=== PATIENT | female | born 1990 | race Caucasian/White ===

== ENCOUNTER 2020-04-30 08:41 | Outpatient (CLI) | payer OTHER ==
[~2020-04-30] VITALS: Ht 170.2 cm; Wt 78.2 kg
[~2020-04-30 08:41] MED LIST: IBUP-1222 PO; OXYC1TAB14 PO
[2020-04-30] MEDS ORDERED: TERBUTALINE 1 MG/ML, 1ML ONE (09:12)
[2020-04-30] MEDS ORDERED: TERBUTALINE 1 MG/ML, 1ML SQ STA (09:23)
[2020-04-30 09:34] VITALS: BP 114/56
[2020-04-30 09:46] LABS: MICROSCOPIC INDICATED
[2020-04-30] MEDS ORDERED: TERBUTALINE 1 MG/ML, 1ML IV STA (10:56)
[2020-04-30 12:18] LABS: BASOPHILS % (AUTO) 0 % (0-1); EOSINOPHILS % (AUTO) 0 % (1-7); LYMPHOCYTES % (AUTO) 18 % (22-44); MEAN CORPUSCULAR HEMOGLOBIN 31.6 pg (27.0-34.8); MEAN CORPUSCULAR HGB CONC 34.2 g/dL (32.4-35.8); MEAN PLATELET VOLUME 8.8 fL (7.4-10.4); MONOCYTES % (AUTO) 5 % (2-9); NEUTROPHILS % (AUTO) 77 % (42-75); PLATELET COUNT 175 x10^3/uL (130-400); RED BLOOD COUNT 3.82 x10^6/uL (3.82-5.3); RED CELL DISTRIBUTION WIDTH 12.9 % (9.6-15.2)
[2020-04-30 12:22] LABS: MD NO
== END 2020-04-30 11:45 | disposition home or self-care (01) ==
LOC: LDOP 08:41
PROVIDERS: ATTEND Obstetrics & Gynecology
DX: O26.892 Other specified pregnancy related conditions, second trimester (principal); R10.9 Unspecified abdominal pain; Z3A.24 24 weeks gestation of pregnancy
CPT/HCPCS: 81001; 85025; 86762; 87086; 87340; 87806; 96372; 99211; J3105; G0463; G0475

== ENCOUNTER 2020-05-27 11:56 | Outpatient (CLI) | payer OTHER ==
[2020-05-27] MEDS ORDERED: TERBUTALINE 1 MG/ML, 1ML ONE (12:18)
[2020-05-27] MEDS ORDERED: LACTATED RINGERS 1,000 ML IVBOLUS ONE (14:00)
[2020-05-27] MEDS ORDERED: TERBUTALINE 1 MG/ML, 1ML SQ ONE (14:00)
[2020-05-27] MEDS ORDERED: LACTATED RINGERS 1,000 ML IV SCH (14:30)
== END 2020-05-27 17:33 | disposition home or self-care (01) ==
LOC: LDOP 11:56
PROVIDERS: ATTEND Obstetrics & Gynecology
DX: O26.892 Other specified pregnancy related conditions, second trimester (principal); R10.9 Unspecified abdominal pain; Z3A.27 27 weeks gestation of pregnancy
CPT/HCPCS: 59025; 96360; 96361; 96372; J3105; J7120

== ENCOUNTER 2020-06-14 16:06 | Observation (INO) | payer OTHER ==
[~2020-06-14] VITALS: Ht 170.2 cm; Wt 79.1 kg
[2020-06-14 17:01] LABS: MICROSCOPIC INDICATED
[2020-06-14] MEDS: LACTATED RINGERS 1,000 ML IV SCH ×2 (17:15→18:17)
[2020-06-14 17:20] VITALS: BP 127/74
[2020-06-14] MEDS ORDERED: INDOMETHACIN 50 MG CAPSULE ONE (20:19)
[2020-06-14] MEDS ORDERED: BETAMETHASONE 6 MG/ML, 5ML IM ONE ×2 (20:19→20:30)
[2020-06-14] MEDS ORDERED: INDOMETHACIN 50 MG CAPSULE PO ONE (20:30)
[2020-06-14] MEDS ORDERED: SUCRALFATE 1 GM/10 ML UDC PO ONE (20:30)
== END 2020-06-14 22:15 | disposition home or self-care (01) ==
LOC: LDOP 16:06 → LDIP 18:36
PROVIDERS: ADMIT Obstetrics & Gynecology; ATTEND Obstetrics & Gynecology
DX: O62.9 Abnormality of forces of labor, unspecified (principal); Z3A.31 31 weeks gestation of pregnancy; Z87.51 Personal history of pre-term labor; Z79.899 Other long term (current) drug therapy
CPT/HCPCS: 59025; 81001; 87086; 96360; 96361; 96372; G0378; J0702; J7120

== ENCOUNTER 2020-06-15 20:02 | Outpatient (CLI) | payer OTHER ==
[2020-06-15] MEDS ORDERED: BETAMETHASONE 6 MG/ML, 5ML IM ONE (20:30)
[2020-06-15] MEDS ORDERED: PLEASE ENTER HEIGHT AND WEIGHT MC SCH (20:30)
== END 2020-06-15 20:20 | disposition home or self-care (01) ==
LOC: LDOP 20:02
PROVIDERS: ATTEND Obstetrics & Gynecology
DX: O62.9 Abnormality of forces of labor, unspecified (principal); O26.893 Other specified pregnancy related conditions, third trimester; R10.9 Unspecified abdominal pain; Z3A.31 31 weeks gestation of pregnancy; Z79.899 Other long term (current) drug therapy
CPT/HCPCS: 59025; 96372; J0702

== ENCOUNTER 2020-07-03 10:17 | Inpatient (IN) | payer OTHER ==
[~2020-07-03] VITALS: Ht 170.2 cm; Wt 83.3 kg
[2020-07-03] MEDS ORDERED: MAGNESIUM SULF. PMX 20GM/500ML 500 ML IV SCH (10:30)
[2020-07-03] MEDS ORDERED: MAGNESIUM SULFATE PMX 4GM/100M 100 ML IVPB ONE (10:30)
[2020-07-03] MEDS ORDERED: MAGNESIUM SULFATE PMX 2GM/50ML 50 ML IVPB ONE (10:30)
[2020-07-03] MEDS ORDERED: PLEASE ENTER HEIGHT AND WEIGHT MC SCH (11:00)
[2020-07-03] MEDS: AMPICILLIN 2 GM in SODIUM CHLORIDE 0.9% 100 ML IV SCH ×3 (11:00→23:01)
[2020-07-03] MEDS ORDERED: FENTANYL PF 100 MCG/2ML IV PRN (11:00)
[2020-07-03] MEDS ORDERED: OXYTOCIN 30U/ 0.9% NaCL 500ML 500 ML IV ONE ×2 (11:00→12:00)
[2020-07-03] MEDS ORDERED: ONDANSETRON 2MG/ML, 2ML IVPush PRN (11:00)
[2020-07-03] MEDS ORDERED: TERBUTALINE 1 MG/ML, 1ML IVPush PRN (11:00)
[2020-07-03] MEDS ORDERED: FENTANYL PF 100 MCG/2ML IVPush PRN (11:00)
[2020-07-03] MEDS ORDERED: TERBUTALINE 1 MG/ML, 1ML SQ PRN (11:00)
[2020-07-03] MEDS ORDERED: BETAMETHASONE 6 MG/ML, 5ML IM ONE ×2 (11:20→12:00)
[2020-07-03 11:38] LABS: BASOPHILS % (AUTO) 0 % (0-1); EOSINOPHILS % (AUTO) 0 % (1-7); LYMPHOCYTES % (AUTO) 16 % (22-44); MEAN CORPUSCULAR HEMOGLOBIN 32.8 pg (27.0-34.8); MEAN CORPUSCULAR HGB CONC 35.3 g/dL (32.4-35.8); MONOCYTES % (AUTO) 7 % (2-9); NEUTROPHILS % (AUTO) 77 % (42-75); PLATELET COUNT 177 x10^3/uL (130-400); RED BLOOD COUNT 3.72 x10^6/uL (3.82-5.3); RED CELL DISTRIBUTION WIDTH 12.5 % (9.6-15.2)
[2020-07-03] MEDS: LACTATED RINGERS 1,000 ML IV SCH ×2 (12:00→21:20)
[2020-07-03] MEDS ORDERED: NEWBORN KIT ONE (12:04)
[2020-07-03] MEDS ORDERED: OXYTOCIN 30U/ 0.9% NaCL 500ML 500 ML ONE (19:28)
[2020-07-03] MEDS ORDERED: MISOPROSTOL 200 MCG TABLET ONE (19:29)
[2020-07-03] MEDS ORDERED: LIDOCAINE 1%, 20ML ONE (19:29)
[2020-07-03 20:18] VITALS: BP 119/61
[2020-07-03 23:54] LABS: MICROSCOPIC INDICATED
[2020-07-04] MEDS: AMPICILLIN 2 GM in SODIUM CHLORIDE 0.9% 100 ML IV SCH ×4 (04:57→22:52)
[2020-07-04 07:23] VITALS: BP 95/52
[2020-07-04] MEDS: LACTATED RINGERS 1,000 ML IV SCH ×2 (11:00→19:00)
[2020-07-04] MEDS ORDERED: BETAMETHASONE 6 MG/ML, 5ML IM ONE (11:05)
[2020-07-05] MEDS: LACTATED RINGERS 1,000 ML IV SCH ×3 (03:00→19:00)
[2020-07-05] MEDS: AMPICILLIN 2 GM in SODIUM CHLORIDE 0.9% 100 ML IV SCH ×2 (05:35→11:34)
[2020-07-05] MEDS ORDERED: DOCUSATE 100 MG CAPSULE ONE (09:18)
[2020-07-05] MEDS: DOCUSATE 100 MG CAPSULE PO SCH (09:25)
[2020-07-05 20:16] VITALS: BP 130/67
[2020-07-06] MEDS: LACTATED RINGERS 1,000 ML IV SCH ×3 (03:00→19:00)
[2020-07-06] MEDS: DOCUSATE 100 MG CAPSULE PO SCH ×3 (09:15→21:00)
[2020-07-06 12:30] LABS: BASOPHILS % (AUTO) 0 % (0-1); EOSINOPHILS % (AUTO) 0 % (1-7); LYMPHOCYTES % (AUTO) 19 % (22-44); MEAN CORPUSCULAR HEMOGLOBIN 33.1 pg (27.0-34.8); MEAN CORPUSCULAR HGB CONC 35.2 g/dL (32.4-35.8); MEAN PLATELET VOLUME 8.7 fL (7.4-10.4); MONOCYTES % (AUTO) 9 % (2-9); NEUTROPHILS % (AUTO) 72 % (42-75); PLATELET COUNT 186 x10^3/uL (130-400); RED BLOOD COUNT 3.27 x10^6/uL (3.82-5.3); RED CELL DISTRIBUTION WIDTH 12.7 % (9.6-15.2)
[2020-07-07] MEDS: LACTATED RINGERS 1,000 ML IV SCH (03:00)
[2020-07-07 07:26] VITALS: BP 104/55
[2020-07-07] MEDS: SODIUM CHLORIDE FLUSH 3ML SYRINGE IVF SCH ×2 (08:35→19:34)
[2020-07-07] MEDS: DOCUSATE 100 MG CAPSULE PO SCH (19:34)
[2020-07-08] MEDS: SODIUM CHLORIDE FLUSH 3ML SYRINGE IVF SCH ×2 (07:33→19:30)
[2020-07-08] MEDS: LACTATED RINGERS 1,000 ML IV SCH (08:04)
[2020-07-08 09:19] LABS: MICROSCOPIC NOT IND
[2020-07-08] MEDS: DOCUSATE 100 MG CAPSULE PO SCH ×3 (12:14→21:00)
[2020-07-08 19:30] VITALS: BP 113/56
[2020-07-09] MEDS: SODIUM CHLORIDE FLUSH 3ML SYRINGE IVF SCH (09:00)
[2020-07-10] MEDS: SODIUM CHLORIDE FLUSH 3ML SYRINGE IVF SCH (08:40)
[2020-07-10] MEDS: DOCUSATE 100 MG CAPSULE PO SCH (21:00)
[2020-07-11 08:55] VITALS: BP 115/55
[2020-07-11] MEDS: DOCUSATE 100 MG CAPSULE PO SCH ×2 (09:00→21:00)
[2020-07-11] MEDS: PRENATAL VIT/IRON/FA 1 EACH TABLET PO SCH (09:00)
[2020-07-11 19:48] VITALS: BP 112/59
[2020-07-12] VITALS: BP 89/46
[2020-07-12] MEDS: DOCUSATE 100 MG CAPSULE PO SCH ×3 (09:00→21:00)
[2020-07-12] MEDS: PRENATAL VIT/IRON/FA 1 EACH TABLET PO SCH (09:06)
[2020-07-13] MEDS: DOCUSATE 100 MG CAPSULE PO SCH ×3 (09:00→21:00)
[2020-07-13 09:05] VITALS: BP 108/59
[2020-07-13] MEDS: PRENATAL VIT/IRON/FA 1 EACH TABLET PO SCH (09:10)
[2020-07-13] MEDS ORDERED: PREN1TAB60 PO (09:28)
[2020-07-14 08:17] VITALS: BP 111/55
[2020-07-14] MEDS: DOCUSATE 100 MG CAPSULE PO SCH ×3 (09:00→21:00)
[2020-07-14] MEDS: PRENATAL VIT/IRON/FA 1 EACH TABLET PO SCH (12:00)
[2020-07-14] MEDS: LACTATED RINGERS 1,000 ML IV SCH ×2 (13:25→22:00)
[2020-07-14] MEDS ORDERED: ONDANSETRON 2MG/ML, 2ML IVPush PRN (14:00)
[2020-07-14] MEDS ORDERED: TERBUTALINE 1 MG/ML, 1ML IVPush PRN (14:00)
[2020-07-14] MEDS: D5%-LACTATED RINGERS 1,000 ML IV SCH ×2 (14:00→22:00)
[2020-07-14] MEDS ORDERED: FENTANYL PF 100 MCG/2ML IVPush PRN (14:00)
[2020-07-14] MEDS ORDERED: FENTANYL PF 100 MCG/2ML IV PRN (14:00)
[2020-07-14] MEDS ORDERED: OXYTOCIN 30U/ 0.9% NaCL 500ML 500 ML IV PRN (14:00)
[2020-07-14] MEDS ORDERED: CALCIUM CARBONATE 500 MG TAB.CHEW PO PRN (14:00)
[2020-07-14] MEDS ORDERED: TERBUTALINE 1 MG/ML, 1ML SQ PRN (14:00)
[2020-07-14] MEDS ORDERED: OXYTOCIN 30U/ 0.9% NaCL 500ML 500 ML IV ONE (14:00)
[2020-07-14 14:26] LABS: BASOPHILS % (AUTO) 0 % (0-1); EOSINOPHILS % (AUTO) 0 % (1-7); LYMPHOCYTES % (AUTO) 17 % (22-44); MEAN CORPUSCULAR HGB CONC 36.2 g/dL (32.4-35.8); MEAN PLATELET VOLUME 9.1 fL (7.4-10.4); MONOCYTES % (AUTO) 7 % (2-9); NEUTROPHILS % (AUTO) 76 % (42-75); PLATELET COUNT 245 x10^3/uL (130-400); RED BLOOD COUNT 3.94 x10^6/uL (3.82-5.3); RED CELL DISTRIBUTION WIDTH 12.8 % (9.6-15.2)
[2020-07-14] MEDS ORDERED: LIDOCAINE 1%, 20ML ONE (16:34)
[2020-07-14] MEDS ORDERED: METHYLERGONOVINE 0.2 MG/ML IM ONE (16:34)
[2020-07-14] MEDS ORDERED: MISOPROSTOL 200 MCG TABLET ONE (16:35)
[2020-07-14] MEDS ORDERED: BUPIVACAINE 0.25% ONE (18:46)
[2020-07-14] MEDS ORDERED: FENTANYL/BUPIV./NS/PF 250 ML EPIDCONT ONE (18:46)
[2020-07-14] MEDS ORDERED: METHYLERGONOVINE 0.2 MG/ML IM PRN (23:30)
[2020-07-14] MEDS ORDERED: MAGNESIUM HYDROXIDE 8%, 30ML UDC PO PRN (23:30)
[2020-07-14] MEDS ORDERED: SIMETHICONE 80 MG CHEW TAB PO PRN (23:30)
[2020-07-14] MEDS ORDERED: OXYcodone IR 5MG TABLET PO PRN (23:30)
[2020-07-14] MEDS ORDERED: OXYcodone/APAP 5/325MG TABLET PO PRN (23:30)
[2020-07-14] MEDS ORDERED: ONDANSETRON 2MG/ML, 2ML IV PRN (23:30)
[2020-07-14] MEDS ORDERED: ACETAMINOPHEN 325 MG TABLET PO PRN ×2 (23:30)
[2020-07-14] MEDS ORDERED: OXYTOCIN 10 UNITS/ML, 1ML IM PRN (23:30)
[2020-07-14] MEDS: OXYTOCIN 30U/ 0.9% NaCL 500ML 500 ML IV SCH (23:30)
[2020-07-14] MEDS: IBUPROFEN 800 MG TABLET PO PRN (23:45)
[2020-07-15 01:50] VITALS: BP 102/61
[2020-07-15 05:45] VITALS: BP 92/58
[2020-07-15 06:49] LABS: BASOPHILS % (AUTO) 0 % (0-1); EOSINOPHILS % (AUTO) 0 % (1-7); LYMPHOCYTES % (AUTO) 18 % (22-44); MEAN CORPUSCULAR HEMOGLOBIN 32.9 pg (27.0-34.8); MEAN CORPUSCULAR HGB CONC 35.7 g/dL (32.4-35.8); MEAN PLATELET VOLUME 8.9 fL (7.4-10.4); MONOCYTES % (AUTO) 12 % (2-9); NEUTROPHILS % (AUTO) 70 % (42-75); PLATELET COUNT 169 x10^3/uL (130-400); RED BLOOD COUNT 3.06 x10^6/uL (3.82-5.3); RED CELL DISTRIBUTION WIDTH 12.5 % (9.6-15.2)
[2020-07-15 07:35] VITALS: BP 98/60
[2020-07-15] MEDS: OXYTOCIN 30U/ 0.9% NaCL 500ML 500 ML IV SCH ×2 (09:30→19:30)
[2020-07-15] MEDS: PRENATAL VIT/IRON/FA 1 EACH TABLET PO SCH (09:52)
[2020-07-15] MEDS: DOCUSATE 100 MG CAPSULE PO PRN (09:52)
[2020-07-15] MEDS: IBUPROFEN 800 MG TABLET PO PRN (09:52)
[2020-07-15 16:00] VITALS: BP 101/65
[2020-07-15 20:36] VITALS: BP 109/73
[2020-07-16] MEDS: OXYTOCIN 30U/ 0.9% NaCL 500ML 500 ML IV SCH (05:30)
[2020-07-16] MEDS: DOCUSATE 100 MG CAPSULE PO PRN (07:14)
[2020-07-16] MEDS: PRENATAL VIT/IRON/FA 1 EACH TABLET PO SCH (07:14)
[2020-07-16 07:28] VITALS: BP 114/73
[2020-07-16] MEDS ORDERED: IBUP-1223 PO (10:28)
== END 2020-07-16 11:00 | disposition home or self-care (01) | DRG 807 ==
LOC: LDOP 10:17 → LDIP 10:38 → 2NE 21:08 → LDIP 07-14 14:09 → 2NW 07-15 01:40
PROVIDERS: ADMIT Obstetrics & Gynecology; ATTEND Obstetrics & Gynecology
PROC: 10E0XZZ Delivery of Products of Conception, External Approach (ICD-10-PCS; principal; 2020-07-14)
DX: O60.14X0 Preterm labor third trimester with preterm delivery third trimester, not applicable or unspecified (principal); Z37.0 Single live birth; O24.420 Gestational diabetes mellitus in childbirth, diet controlled; Z3A.33 33 weeks gestation of pregnancy; Z20.822 Contact with and (suspected) exposure to COVID-19
CPT/HCPCS: 36415; 81001; 81003; 82962; 84112; 85025; 86592; 86850; 86900; 87081; 87086; 87635; G0378; J0290; J0702; J2405; J3010; J2590; J7120